=== PATIENT | female | born 1970 | race American Indian/Alaskan Native ===

== ENCOUNTER 2018-03-20 18:31 | Inpatient (IN) | payer MEDICAID ==
--- NOTE | 2018-03-20 19:35 | C.PDOC ---
History Of Present Illness 47 y/o female presents to the ED requesting heroin detox. Last used around 5pm today. Denies any suicidal or homicidal ideation. Patient offers no acute complaints. Time Seen by Provider: 03/20/18 19:35 Chief Complaint (Nursing): Substance Abuse History Per: Patient History/Exam Limitations: no limitations Onset/Duration Of Symptoms: Days Current Symptoms Are (Timing): Still Present Suicide/Self Injury Attempted (Context): None Modifying Factor(s): Other (Heroin) Severity: None Pain Scale Rating Of: 0 Associated Symptoms: denies: Suicidal Thoughts, Suicidal Plan Involuntary Hold By: None Additional History Per: Prior Records Past Medical History Reviewed: Historical Data, Nursing Documentation, Vital Signs Vital Signs: Last Vital Signs Temp 98.1 F 03/20/18 18:41 Pulse 73 03/20/18 18:41 Resp 18 03/20/18 18:41 BP 137/84 03/20/18 18:41 Pulse Ox 96 03/20/18 19:53 - Medical History PMH: Anxiety Other PMH: Heroin abuse Surgical History: No Surg Hx Family History: States: No Known Family Hx - Social History Hx Tobacco Use: No Hx Alcohol Use: Yes Hx Substance Use: Yes - Immunization History Hx Tetanus Toxoid Vaccination: No Hx Influenza Vaccination: No Hx Pneumococcal Vaccination: No Review Of Systems Constitutional: Negative for: Fever, Chills Gastrointestinal: Negative for: Nausea, Vomiting Psych: Positive for: Other (Heroin abuse) Physical Exam - Physical Exam Appears: Non-toxic, No Acute Distress Skin: Warm, Dry Head: Normacephalic Eye(s): bilateral: Normal Inspection Oral Mucosa: Moist Neck: Trachea Midline, Supple Chest: Symmetrical Cardiovascular: Rhythm Regular Respiratory: No Rales, No Rhonchi, No Wheezing Gastrointestinal/Abdominal: Bowel Sounds (active), Soft, No Tenderness, No Distention Extremity: Bilateral: Atraumatic, Normal Color And Temperature, Normal ROM Pulses: Left Dorsalis Pedis: Normal, Right Dorsalis Pedis: Normal Neurological/Psych: Oriented x3 Gait: Steady ED Course And Treatment - Laboratory Results Result Diagrams: 03/20/18 19:46 03/20/18 19:46 O2 Sat by Pulse Oximetry: 96 (RA) Pulse Ox Interpretation: Normal Progress Note: Blood work and urine sent. scrap worker to evaluate patient at bedside. Disposition Discussed With : Deborah Luna Comment: accepted the pt on his service and took over the care at 8:40 PM Doctor Will See Patient In The: Hospital Counseled Patient/Family Regarding: Studies Performed, Diagnosis - Disposition Disposition: HOSPITALIZED Disposition Time: 19:35 Condition: FAIR Forms: [facility] (Panamanian) - POA Present On Arrival: Poor Glycemic Control - Clinical Impression Clinical Impression: Drug abuse, Drug dependence - Scribe Statement The provider has reviewed the documentation as recorded by the Merna Benitez Provider Attestation: All medical record entries made by the Merna were at my direction and personally dictated by me. I have reviewed the chart and agree that the record accurately reflects my personal performance of the history, physical exam, medical decision making, and the department course for this patient. I have also personally directed, reviewed, and agree with the discharge instructions and disposition. Decision To Admit - Pt Status Changed To: Hospital Disposition Of: Inpatient - Admit Certification Admit to Inpatient:: After my assessment, the patient will require hospitalization for at least two midnights. This is because of the severity of symptoms shown, intensity of services needed, and/or the medical risk in this patient being treated as an outpatient. - InPatient: Physician Admission Certification: I certify that this patient requires 2 or more midnights of care for the following reason:: After my assessment, the patient will require hospitalization for at least two midnights. This is because of the severity of symptoms shown, intensity of services needed, and/or the medical risk in this patient being treated as an outpatient. - . Bed Request Type: Detox Admitting Physician: Deborah Luna Patient Diagnosis: Drug abuse, Drug dependence
[2018-03-20 19:50] LABS: BASO # 0.1 K/uL (0.0-0.2); BASO % 0.6 % (0.0-2.0); EOS # 0.1 K/uL (0.0-0.7); EOS % 0.8 % (0.0-4.0); HEMOGLOBIN 13.4 g/dL (11.0-16.0); LYMPH # 1.9 K/uL (1.0-4.3); LYMPH % 16.6 % (20.0-40.0); MEAN CELL VOLUME 88.4 fL (81.0-99.0); MEAN CORPUSCULAR HEMOGLOBIN 28.9 pg (27.0-31.0); MEAN CORPUSCULAR HGB CONC 32.7 g/dL (33.0-37.0); MEAN PLATELET VOLUME 9.7 fL (7.2-11.7); MONO # 0.9 K/uL (0.0-0.8); MONO % 7.4 % (0.0-10.0); NEUT # 8.7 K/uL (1.8-7.0); NEUT % 74.6 % (50.0-75.0); RBC 4.62 Mil/uL (3.80-5.20); RED CELL DISTRIBUTION WIDTH 13.7 % (11.5-14.5); WHITE BLOOD COUNT 11.7 K/uL (4.8-10.8)
[2018-03-20 19:58] LABS: HCG,QUALITATIVE URINE NEGATIVE (NEGATIVE)
[2018-03-20 20:02] LABS: SQUAMOUS EPITHIAL 2 /hpf (0-5); URINE BILIRUBIN NEGATIVE (NEGATIVE); URINE BLOOD NEGATIVE (NEGATIVE); URINE CLARITY Clear (Clear); URINE COLOR Yellow (YELLOW); URINE GLUCOSE (UA) NORMAL (Normal); URINE LEUKOCYTE ESTERASE NEG Leu/uL (Negative); URINE PROTEIN NEGATIVE (NEGATIVE)
[2018-03-20 20:05] LABS: ALB/GLOB RATIO 1.4 (1.0-2.1); ALBUMIN 4.5 g/dL (3.5-5.0); ALT/SGPT 24 U/L (9-52); AST/SGOT 24 U/L (14-36); BLOOD UREA NITROGEN 11 mg/dL (7-17); CALCIUM 9.6 mg/dl (8.6-10.4); GFR AFRICAN-AMERICAN > 60; GFR NON-AFRICAN AMERICAN > 60
[2018-03-20 20:08] LABS: BARBITURATES, UR NEGATIVE (NEGATIVE); BENZODIAZEPINES, UR NEGATIVE (NEGATIVE); PHENCYCLIDINE, UR NEGATIVE (NEGATIVE)
[2018-03-20 20:11] LABS: OPIATES, UR POSITIVE (NEGATIVE)
[2018-03-20] MEDS ORDERED: Aluminum Hydroxide/Magnesium Hydroxide Susp (30 mL) PO PRN ×2 (20:22→21:54)
--- NOTE | 2018-03-20 20:49 | PCM.BM ---
Treatment Plan Problems - Problems identified on initial assessmt potential for opiate withdrawal Date Initiated: 03/20/18 Time Initiated: 20:48 Status: Active Treatment assets and liabiliti Patient Assests: cooperative, cognitively intact Patient Liabilities: substance abuse - Milieu Protocol Maintain good personal hygiene: daily Encourage regular showers, daily Remind patient to perform daily oral care, daily Assist patient to perform ADL's Conduct patient checks and document Observation sheet: Q15 minutes Maintain personal safety: every shift Educate patient to report safety concerns to staff, every shift Monitor environment for contraband/sharps Medication safety: Monitor for expected outcome, potential side effects: every shift, Assess barriers to learning: every shift, Assess readiness for medication education: every shift
[2018-03-21] MEDS ORDERED: Buprenorphine Hydrochloride 2 mg SL ONE ×2 (12:00→23:36)
[2018-03-21 17:19] LABS: HEMOGLOBIN 13.9 g/dL (11.0-16.0); MEAN CELL VOLUME 87.9 fL (81.0-99.0); MEAN PLATELET VOLUME 9.9 fL (7.2-11.7); RBC 4.78 Mil/uL (3.80-5.20); RED CELL DISTRIBUTION WIDTH 13.9 % (11.5-14.5); WHITE BLOOD COUNT 12.8 K/uL (4.8-10.8)
[2018-03-21 17:44] LABS: BLOOD UREA NITROGEN 7 mg/dL (7-17); CALCIUM 9.7 mg/dl (8.6-10.4); GFR AFRICAN-AMERICAN > 60; GFR NON-AFRICAN AMERICAN > 60
--- NOTE | 2018-03-21 19:29 | PCM.PSYCH ---
Initial Psychiatric Evaluation - Initial Psychiatric Evaluation Chief Complaint (in patient's own words): I NEED TO GET CLEAN SO I CAN SEE MY CHILDREN AND GRANDBABIES Patient's Reaction to Hospitalization: I AM GLAD I CAN GET HELP History of Present Illness and Precipitating Events: PT IS A 47 YEAR OLD BLACK DOMICILED FEMALE WHO CAME [facility] LOOKING FOR DETOX FROM HEROIN. SHE STARTED USING HEROIN INTRANASAALY AFTER SHE COULD NO LONGER BE PRESCRIBED OXYCONTIN. PT WAS ORIGINALLY ON OXYCONTIN BECAUSE SHE BROKE HER ANKLE. SHE USED ON THE AVERAGE 15 BAGS A DAY BUT LATELY HAD REDUCED TO ABOUT 5 BAGS A DAUY. SHE ALSO HAS BEEN DRINKING ABOUT 2 BEERS ADAY CFOR THE LAST MONTH. MOTHER IS ALIVE. FATHER BEFORE PT WAS BORN. MOTHER IS A RECOVERING COCAINE ADDICT. THERE IS NO FAMILY PSYCHIATRIC HISTORY PT HAS 7 CHILDREN. SHE HAS SEVERAL HALF-BROTHERS AND HALF-SISTERS. SHE HAS NEVER BEEN IN THE . SHE HAS BEEN CHARGED WITH THEFT. SHE WENT UP TO [employer] GRADE. SHE HAS WORKED A [employer].SHE HAS BEEN AT [facility] FOR DETOX AND REHAB. THIS IS PT'S SECOND DETOX. SHE PURPOSELY TRIED TO KILL HERSELF WITH AN OVERDOSE SEVERAL MONTHS AGO PT FEELS HELPLESS AND HOPELESS WELL WORTHLESS. PT HAS WATERY EYES, RUNNY NOSE AND ACHES AND PAINS IN HER JOINTS Current Medications: Active Medications Generic Name Dose Route Start Last Admin Trade Name Freq PRN Reason Stop Dose Admin Acetaminophen 650 mg 03/20/18 21:54 03/21/18 16:06 Tylenol 325mg Tab PO 650 mg Q4H PRN Administration Pain, moderate (4-7) Al Hydrox/Mg Hydrox/Simethicone 30 ml 03/20/18 21:54 Maalox 30 Ml PO TID PRN Indigestion / Heartburn Clonidine HCl 0.1 mg 03/20/18 21:54 03/21/18 09:51 Catapres PO 0.1 mg Q8 PRN Administration COWS Score More or Equal to 5 Gabapentin 300 mg 03/21/18 10:00 03/21/18 17:53 Neurontin PO 300 mg BID BARBARA Administration Hydroxyzine HCl 25 mg 03/20/18 21:56 03/21/18 18:48 Atarax PO 25 mg Q6 PRN Administration Anxiety Loperamide HCl 2 mg 03/20/18 21:54 Imodium PO Q8 PRN Diarrhea Ondansetron HCl 4 mg 03/20/18 21:54 03/21/18 01:22 Zofran Tab PO 4 mg Q8 PRN Administration Nausea/Vomiting Trazodone HCl 100 mg 03/20/18 21:57 03/21/18 01:22 Desyrel PO 03/27/18 21:58 100 mg HS PRN Administration Insomnia Past Psychiatric History - Past Psychiatric History Prior Professional Help: SEE HPI Pertinent Medical Hx (Current Medical&Sleep Prob, Allergies): Allergies Allergy/AdvReac Type Severity Reaction Status Date / Time amoxicillin Allergy Intermediate RASH Verified 03/20/18 18:45 methocarbamol [From Robaxin] Allergy Intermediate RASH Verified 03/20/18 18:45 Acetaminophen with Codeine [Tylenol with Codeine No. 3 300 mg-30 mg] 1 tab PO TID PRN 03/20/18 Review of Systems - Constitutional Constitutional: Chills, Sweats - EENT Eyes: UNREMARKABLE Ears: UNREMARKABLE Nose/Mouth/Throat: Other Additional comments: RUNNY NOSE - Breasts Breasts: UNREMARKABLE - Cardiovascular Cardiovascular: UNREMARKABLE - Gastrointestinal Gastrointestinal: Nausea - Genitourinary Genitourinary: UNREMARKABLE - Reproductive: Female Reproductive:Female: UNREMARKABLE - Menstruation Menstruation: UNREMARKABLE - Musculoskeletal Musculoskeletal: Arthralgias, Myalgias - Integumentary Integumentary: UNREMARKABLE - Neurological Neurological: UNREMARKABLE - Psychiatric Psychiatric: Depression, Hopelessness - Endocrine Endocrine: UNREMARKABLE - Hematologic/Lymphatic Hematologic: As Per HPI, UNREMARKABLE Mental Status Examination - Personal Presentation Personal Presentation: Looks stated age - Affect Affect: Constricted - Motor Activity Motor Activity: Calm - Reliability in Providing Information Reliability in Providing Information: Good - Speech Speech: Organized - Mood Mood: Anxious - Formal Thought Process Formal Thought Process: No Impairment - Obsessions/Compulsions Obsessions: None Compulsions: None - Cognitive Functions Orientation: Person, Place, Situation, Time Sensorium: Alert Attention/Concentration: Attentive Abstract Thinking: As evidence by abstract perception of proverbs Estimate of Intelligence: Average Judgement: Intact, as evidence by: Good judgement, Intact, as evidence by: Insight regarding need for hospitalization Memory: Recent intact, as evidence by: Ability to recall events of the day, Remote intact, as evidenced by: Abilit to recall sig. 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 DISCHARGE CRITERIA IS FOR PT TO HAVE NO ACUTE WITHDRAWL SYMPTOMS - Smoking Cessation Smoking Cessation Initiated: No
--- NOTE | 2018-03-21 19:33 | PCM.PSYCH ---
Initial Psychiatric Evaluation - Initial Psychiatric Evaluation Legal Status: Capacity Chief Complaint (in patient's own words): I NEED TO GET CLEAN SO I CAN SEE MY CHILDREN AND GRANDCHILDREN Patient's Reaction to Hospitalization: I AM GLAD I CAN GET HELP Current Medications: Active Medications Generic Name Dose Route Start Last Admin Trade Name Freq PRN Reason Stop Dose Admin Acetaminophen 650 mg 03/20/18 21:54 03/21/18 16:06 Tylenol 325mg Tab PO 650 mg Q4H PRN Administration Pain, moderate (4-7) Al Hydrox/Mg Hydrox/Simethicone 30 ml 03/20/18 21:54 Maalox 30 Ml PO TID PRN Indigestion / Heartburn Clonidine HCl 0.1 mg 03/20/18 21:54 03/21/18 09:51 Catapres PO 0.1 mg Q8 PRN Administration COWS Score More or Equal to 5 Gabapentin 300 mg 03/21/18 10:00 03/21/18 17:53 Neurontin PO 300 mg BID BARBARA Administration Hydroxyzine HCl 25 mg 03/20/18 21:56 03/21/18 18:48 Atarax PO 25 mg Q6 PRN Administration Anxiety Loperamide HCl 2 mg 03/20/18 21:54 Imodium PO Q8 PRN Diarrhea Ondansetron HCl 4 mg 03/20/18 21:54 03/21/18 01:22 Zofran Tab PO 4 mg Q8 PRN Administration Nausea/Vomiting Trazodone HCl 100 mg 03/20/18 21:57 03/21/18 01:22 Desyrel PO 03/27/18 21:58 100 mg HS PRN Administration Insomnia Past Psychiatric History - Past Psychiatric History Pertinent Medical Hx (Current Medical&Sleep Prob, Allergies): Allergies Allergy/AdvReac Type Severity Reaction Status Date / Time amoxicillin Allergy Intermediate RASH Verified 03/20/18 18:45 methocarbamol [From Robaxin] Allergy Intermediate RASH Verified 03/20/18 18:45 Acetaminophen with Codeine [Tylenol with Codeine No. 3 300 mg-30 mg] 1 tab PO TID PRN 03/20/18
[2018-03-22 11:34] VITALS: BP 140/83; PULSE 57; RESP 18; TEMP 98.7; O2SAT 100
== END 2018-03-22 12:18 | disposition home or self-care (01) | DRG 745 ==
LOC: C.ER 18:31 → C.7D 20:39
PROVIDERS: ADMIT Psychiatry & Neurology Psychiatry; ATTEND Psychiatry & Neurology Psychiatry
PROC: HZ2ZZZZ Detoxification Services for Substance Abuse Treatment (ICD-10-PCS; principal; 2018-03-20)
PROC: HZ52ZZZ Individual Psychotherapy for Substance Abuse Treatment, Cognitive-Behavioral (ICD-10-PCS; 2018-03-20)
PROC: HZ59ZZZ Individual Psychotherapy for Substance Abuse Treatment, Supportive (ICD-10-PCS; 2018-03-20)
DX: F11.23 Opioid dependence with withdrawal (principal); F41.9 Anxiety disorder, unspecified